=== PATIENT | female | born 1975 | race Caucasian/White ===

== ENCOUNTER 2018-12-21 12:13 | Inpatient (IN) ==
[2018-12-21 12:46] VITALS: BP 126/80
--- NOTE | 2018-12-21 12:50 | OB/GYN History & Physical ---
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 Dumont and gretchen made aware of admission and arrival Complete on vaginal exam with tight BBOW and unable to feel cervix Pt declines labs Nuabin and epidural as desires Anticipate (3) Advanced maternal age (AMA) in Current visit: Yes Status: Acute (4) Grand multiparity Current visit: Yes Status: Acute (5) Rh incompatibility in Current visit: Yes Status: Acute Qualifiers: Fetus number: single or unspecified fetus Trimester: third trimester Qualified Code(s): O36.0930 - Maternal care for other rhesus isoimmunization, third trimester, not applicable or unspecified History of Present Illness Chief complaint: Contractions HPI: Ms. Albert is a 43 year old female at 34+4 who presents to L&D in labor with complicated due to suspected non-viability of fetus with mulitple congenital abnormalities. Cervix was completely dilated with tight BBOW on inital evaluation History of 1 previous demise at 18 days of life. Previous deliveries have all been vaginal home births with the exception of her last . Patient had 1 visit with Kathleen MORROW and declined labs for this . US showed multiple anomalies and [facility] US completed at [facility] identified abnormalities include IUGR (<3rd percentile), splayed cerebellum, enlarged head, left CDH, possible cardiac outflow anomaly, rockerbottom vs clubbed feet, extended legs, enlarged echogenic kidneys, echogenic bowel, probable umbilical hernia vs omphalacele. Polyhydramnios was present and increased compared to previous US. Contractions started this morning, denies vaginal bleeding of LOF, has not felt movement today. Labs: A negative Declined all labs Past Med Surg Social Fam HX - Past Medical History Medical history: no medical history Psychiatric history: no psych history - Past Surgical History Surgical History: no surgical history - Social History Smoking Status: Never smoker Alcohol use: none Drug use: none - Family History Mother Hx Family Cardiac Disorders: No Hx Family Respiratory Disorders: No Hx Family Cancer: No Hx Family GI Disorders: No Hx Family Endocrine Disorder: No Hx Family Neuromuscular Disorders: No Hx Family Neurologic Disorders: No Hx Family HEENT Disorders: No Hx Family Autoimmune Disorders: No Obstetrical History - Pregnancies : 11 Para: 10 Term: 8 : 2 Ab's: 0 Livin Medications and Allergies RX: Vit/Iron Fumarate/FA [ Tablet] 1 tab PO DAILY 06/05/16 [History] RX: Docusate [Colace] 100 mg PO BID capsule 06/06/16 [Rx] RX: Ferrous Sulfate 325 mg PO DAILY tablet 06/06/16 [Rx] RX: Ibuprofen [Motrin] 600 mg PO Q6HR PRN #0 tablet 06/06/16 [Rx] Allergy/AdvReac Type Severity Reaction Status Date / Time No Known Allergies Allergy Verified 06/05/16 13:57 Exam - Constitutional Constitutional: well developed, well nourished, no acute distress, average body habitus - Neck Neck exam: full ROM - Lungs Respiratory exam: CTAB - Cardiovascular Cardiovascular exam: RRR - Abdomen Abdomen: Present: gravid - Vagina Vagina: Present: normal moisture Results Result Diagrams: 12/21/18 12:32 All other labs normal.
[2018-12-21] MEDS ORDERED: *HR* Nalbuphine 10 MG/ML AMPUL IV PRN (13:28)
[2018-12-21] MEDS ORDERED: Famotidine 20 MG/2 ML VIAL IVP PRN (13:34)
[2018-12-21] MEDS ORDERED: Naloxone 0.4 MG/ML INJ IVP PRN (13:34)
[2018-12-21] MEDS ORDERED: Metoclopramide 10 MG/2 ML VIAL IVP PRN (13:34)
[2018-12-21] MEDS ORDERED: Ondansetron 4 MG/2 ML VIAL IVP PRN (13:34)
[2018-12-21] MEDS ORDERED: Ringers Solution, Lactated 1,000 ML IVC SCH (13:45)
[2018-12-21 14:29] LABS: Basophils % 0.2 %; Eosinophils % 0.2 %; Hematocrit 39.9 % (35.3-44.9); Hemoglobin 13.3 g/dL (11.5-15.4); Immature Granulocytes % 0.5 % (0-4); Lymphocytes # 1.4 K/mcL (0.6-4.6); Lymphocytes % 8.7 %; Mean Corpuscular HGB Conc 33.3 g/dL (31.6-35.5); Mean Corpuscular Hemoglobin 29.6 pg (28.0-33.3); Mean Corpuscular Volume 88.9 fL (83.0-100.0); Mean Platelet Volume 11.4 fL (9.4-12.4); Monocytes # 0.7 K/mcL (0.0-1.3); Monocytes % 4.4 %; Neutrophils # 13.8 K/mcL (1.6-8.9); Platelet Count 254 K/mcL (140-400); Red Blood Count 4.49 M/mcL (3.82-4.97); Red Cell Distribution Width 12.9 % (11.5-14.5)
--- NOTE | 2018-12-21 16:49 | OB Labor Progress Note ---
Date of Encounter: 12/21/18 Time of Encounter: 13:07 Labor Progress Note - Subjective Subjective: Pt feeling more contractions and pain - Cervix Cervix: BBOW noted - Interventions Interventions: Complete on cervical exam, tight BBOW noted, unable to feel presenting part, Dr. Dumont notified and in room for AROM. Copious amounts of clear fluid noted firm presenting part noted, cervical exam became 4-5cm. - Plan Physician notified: Yes Physician notified details: At bedside Plan: Allow expectant management at this time [place] for contraction monitoring Continues to decline heartrate assessment Prefers to wait
--- NOTE | 2018-12-21 17:13 | OB/GYN Procedure Note ---
Delivery - Delivery Date: 12/21/18 Provider: Ana Allen Intrapartum events: none, other(please specify) ( anomolies incompatible with life) Delivery induction: none Delivery augmentation: rupture of membranes Delivery monitor: external uterine Anesthesia: intravenous Quantitated Blood Loss: 50 - (s) Infant A Delivery Date: 12/21/18 Delivery Time: 16:35 Presentation: vertex Position: OA Route of delivery: Gender: Male at 1 minute: 1 at 5 mins: 1 at 10 mins: 1 Shoulder Dystocia: not encountered Placenta: spontaneous - Repair Episiotomy: none Laceration Description: None - Complications Delivery complications: none Delivery comments: Patient admitted in labor, multiple known anomalies and incompatible with life, hospice plan in place. Progressed to complete. Maternal bearing down efforts to of male infant placed on blanket on maternal abdomen wrapped and placed in mother's arms, no cry or movement noted. heartbeat only noted at 1 minute , heartbeat remains noted at 5 minute and 10 minute respectively. Placenta delivered spontaneously ([place]) complete and intact upon inspection. No perineal lacerations noted. EBL 50. notified delivery. time of 1711 - Disposition Mom disposition: stable in LDR
[2018-12-21] MEDS ORDERED: Rho Immune Globulin 1,500 UNIT SYRINGE IM PRN (17:23)
[2018-12-21] MEDS ORDERED: Ibuprofen 600 MG TABLET PO PRN (17:23)
[2018-12-21] MEDS ORDERED: Acetaminophen 325 MG TABLET PO PRN (17:23)
[2018-12-21] MEDS ORDERED: *HR* HYDROcodone/Acet 5/325 mg TABLET PO PRN (17:23)
[2018-12-21] MEDS ORDERED: Oxytocin 20 units/ LR 1000 mL 20 UNIT/1,000 ML BAG IVC SCH (17:30)
--- NOTE | 2018-12-21 19:18 | Discharge Summary ---
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 Priority: Primary Status: Acute Comments: Bleeding minimal, pain controlled, meeting PP milestones, desires discharge to home (3) Advanced maternal age (AMA) in Priority: Primary Status: Acute (4) Grand multiparity Priority: Primary Status: Acute (5) Rh incompatibility in Priority: Primary Status: Acute Comments: pt refused Rhogam, states has never needed or used it in previous pregnancies Qualifiers: Fetus number: single or unspecified fetus Trimester: third trimester Qualified Code(s): O36.0930 - Maternal care for other rhesus isoimmunization, third trimester, not applicable or unspecified - Discharge Medications Prescriptions: New Acetaminophen [Tylenol] 650 mg PO Q6HR PRN tablet PRN Reason: Mild Pain Ibuprofen [Motrin] 600 mg PO Q6HR PRN tablet PRN Reason: Cramping Continue Vit/Iron Fumarate/FA [ Tablet] 1 tab PO DAILY Ibuprofen [Motrin] 600 mg PO Q6HR PRN #0 tablet PRN Reason: Pain Discontinued Ferrous Sulfate 325 mg PO DAILY tablet Docusate [Colace] 100 mg PO BID capsule Home Medications: Vit/Iron Fumarate/FA [ Tablet] 1 tab PO DAILY 06/05/16 [History] Ibuprofen [Motrin] 600 mg PO Q6HR PRN #0 tablet 06/06/16 [Rx] Acetaminophen [Tylenol] 650 mg PO Q6HR PRN tablet 12/21/18 [Rx] Ibuprofen [Motrin] 600 mg PO Q6HR PRN tablet 12/21/18 [Rx] Allergies/Adverse Reactions: Allergy/AdvReac Type Severity Reaction Status Date / Time No Known Allergies Allergy Verified 06/05/16 13:57 Data Procedures and tests throughout hospitalization: Laboratory Tests 12/21/18 12:32 WBC 16.1 H RBC 4.49 Hgb 13.3 Hct 39.9 MCV 88.9 MCH 29.6 MCHC 33.3 RDW 12.9 Plt Count 254 MPV 11.4 Immature Gran % 0.5 Seg Neutrophils % 86.0 Lymphocytes % 8.7 Monocytes % 4.4 Eosinophils % 0.2 Basophils % 0.2 Neutrophils # 13.8 H Lymphocytes # 1.4 Monocytes # 0.7 Eosinophils # 0.0 Basophils # 0.0 Labs on day of discharge: Labs from last 24 hours 12/21/18 12:32 WBC 16.1 H RBC 4.49 Hgb 13.3 Hct 39.9 MCV 88.9 MCH 29.6 MCHC 33.3 RDW 12.9 Plt Count 254 MPV 11.4 Immature Gran % 0.5 Seg Neutrophils % 86.0 Lymphocytes % 8.7 Monocytes % 4.4 Eosinophils % 0.2 Basophils % 0.2 Neutrophils # 13.8 H Lymphocytes # 1.4 Monocytes # 0.7 Eosinophils # 0.0 Basophils # 0.0 Date of admission: 12/21/18 12:13 Primary care physician: Gwen Philip MD Discharging clinician: Ana Allen Anticipated date of discharge: 12/21/18 - Patient Status Disposition: Home, Self-Care Condition: Good Functional capacity at discharge: independent ambulation Overall status at discharge: patient is progressing back to baseline - Discharge Instructions Follow Up With: Gwen Philip MD [Primary Care Provider] - Ana Allen CNM [Advanced Practice Nurse] - - Diet and Activity Activity: resume usual activities as tolerated Diet: regular diet 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 Reason for admission: other Discharge diagnosis: other Procedures: vaginal delivery Hospital course: Delivery - Delivery Date: 12/21/18 Provider: Ana Allen Intrapartum events: none, other(please specify) ( anomolies incompatible with life) Delivery induction: none Delivery augmentation: rupture of membranes Delivery monitor: external uterine Anesthesia: intravenous Quantitated Blood Loss: 50 - (s) A Delivery Date: 12/21/18 Infant Delivery Time: 16:35 Presentation: vertex Position: OA Route of delivery: Gender: Male at 1 minute: 1 at 5 mins: 1 at 10 mins: 1 Shoulder Dystocia: not encountered Placenta: spontaneous - Repair Episiotomy: none Laceration Description: None - Complications Delivery complications: none Delivery comments: Patient admitted in labor, multiple known anomalies and incompatible with life, hospice plan in place. Progressed to complete. Maternal bearing down efforts to of male placed on blanket on maternal abdomen wrapped and placed in mother's arms, no cry or movement noted. heartbeat only noted at 1 minute , heartbeat remains noted at 5 minute and 10 minute respectively. Placenta delivered spontaneously ([place]) complete and intact upon inspection. No perineal lacerations noted. EBL 50. notified delivery. time of 1711 - Disposition Mom disposition: stable in recovery and appropriate for discharge Time Attestation: Total time spent providing and/or coordinating discharge services: Time Spent: Less than 30 minutes Exam - Constitutional Vitals: Temp Pulse Resp BP 98.2 F 116 16 126/80 12/21/18 12:37 12/21/18 12:37 12/21/18 12:37 12/21/18 12:37 - Respiratory Respiratory exam: Present: CTAB - Cardiovascular Cardiovascular exam IM: Present: RRR - GI/Abdominal GI/Abdominal exam IM: soft - Uterine Tone: Firm Uterus Position: 1 Finger Below Umbilicus - Extremities Exam Extremities exam IM: Present: normal inspection - Neurological Exam Neurological exam: oriented X3 - Psychiatric Additional comments: Mood appropriate for situation - VTE Reasons for not Prescribing Prophylaxis: Treatment not Indicated - Low risk for VTE
[2018-12-22] MEDS ORDERED: Prenatal Vit/FA 1 EACH TABLET PO SCH (09:00)
== END 2018-12-21 21:00 | disposition home or self-care (01) | DRG 805 ==
LOC: 1NENULAB 12:13
PROVIDERS: ADMIT Advanced Practice Midwife; ATTEND Advanced Practice Midwife